=== PATIENT | male | born 1985 | race Hispanic/Latino ===

== ENCOUNTER 2023-12-11 20:26 | Emergency (ER) | payer SELFPAY ==
[~2023-12-11] VITALS: Ht 182.9 cm; Wt 63.5 kg
[2023-12-11 20:31] VITALS: TEMP 98.9
[2023-12-11 20:47] LABS: BASOPHILS % 0.7 % (0.0-1.0); EOSINOPHILS % 0.5 % (0.0-6.0); HEMATOCRIT 44.7 % (38.2-49.6); HEMOGLOBIN 15.3 g/dL (14.0-18.0); LYMPHOCYTES # (AUTO) 0.9 (1.0-3.2); LYMPHOCYTES % 22.4 % (18.0-39.1); MEAN CORPUSCULAR HEMOGLOBIN 33.6 pg (28-32); MEAN CORPUSCULAR HGB CONC 34.2 g/dL (31-35); MEAN CORPUSCULAR VOLUME 98.2 fL (81-99); MONOCYTES # (AUTO) 0.4 (0.2-0.8); MONOCYTES % 10.7 % (4.4-11.3); NEUTROPHILS # (AUTO) 2.7 (2.1-6.9); NEUTROPHILS % 65.2 % (38.7-80.0); PLATELET COUNT 134 x10e3/uL (140-360); RED BLOOD COUNT 4.55 x10e6/uL (4.3-5.7); RED CELL DISTRIBUTION WIDTH 12.5 % (11.7-14.4)
[2023-12-11] MEDS: ONDANSETRON HCL INJ 2MG/ML 2ML 2 MG/ML VIAL IV STA (20:49)
[2023-12-11] MEDS: MULTIVITAMINS- 12 INJECTION 10 ML, FOLIC ACID MDV 1 MG, THIAMINE HCL INJ 100 MG in SODI... IV ONE (20:49)
[2023-12-11] MEDS: CHLORDIAZEPOXIDE HCL 25 MG CAP PO ONE (20:51)
[2023-12-11] MEDS: LORAZEPAM INJ 2 MG/ML VIAL IV ONE (20:52)
[2023-12-11 21:07] LABS: ALBUMIN 4.4 g/dL (3.5-5.0); ALBUMIN/GLOBULIN RATIO 1.3 (0.8-2.0); ANION GAP 20.6 mmol/L (8-16); BILIRUBIN,TOTAL 1.1 mg/dL (0.2-1.2); CALCIUM 9.6 mg/dL (8.4-10.2); CREATININE, SERUM 0.84 mg/dL (0.72-1.25); POTASSIUM 3.6 mmol/L (3.5-5.1); TOTAL PROTEIN 7.7 g/dL (6.5-8.1)
[2023-12-11 21:11] LABS: AMPHETAMINES SCREEN,URINE NEGATIVE (NEGATIVE); BENZODIAZEPINES SCREEN,URINE NEGATIVE (NEGATIVE); CANNABINOIDS SCREEN,URINE POSITIVE (NEGATIVE); METHADONE SCREEN, URINE NEGATIVE (NEGATIVE); OPIATES SCREEN,URINE NEGATIVE (NEGATIVE); PHENCYCLIDINE SCREEN,URINE NEGATIVE (NEGATIVE)
[2023-12-11 21:13] LABS: TROPONIN I 0.012 ng/mL (0-0.300)
[2023-12-11 23:00] VITALS: PULSE 85; RESP 11
[2023-12-11] MEDS: THIAMINE HCL INJ 100 MG/ML 2ML VIAL IV ONE (23:11)
[2023-12-12] MEDS: LORAZEPAM INJ 2 MG/ML VIAL IV ONE (00:16)
[2023-12-12 00:19] VITALS: BP 127/94; PULSE 87; RESP 13; TEMP 98.2; O2SAT 100
== END 2023-12-12 00:27 | disposition other institution (70) ==
LOC: ER 20:45
DX: R51.9 Headache, unspecified (principal); F10.231 Alcohol dependence with withdrawal delirium; R94.31 Abnormal electrocardiogram [ECG] [EKG]
CPT/HCPCS: 36415; 70450; 80053; 80307; 80320; 82550; 84484; 85025; 93005; 99284; J2060 ×2; J2405; J3411; J7030